=== PATIENT | female | born 1965 | race Caucasian/White ===

== ENCOUNTER 2020-08-04 15:55 | Outpatient (CLI) | payer BC, SELFPAY ==
--- NOTE | ~2020-08-04 | MM_ITS ---
EXAMINATION: MM screening scooter BI w alejandro HISTORY: Screening TECHNIQUE: Craniocaudal and mediolateral oblique 3-D tomosynthesis images were obtained and synthetic 2-D images were generated. CAD analysis was submitted and interpreted. COMPARISON: Comparison to multiple prior studies sequentially, with oldest reviewed study dated 08/29. BREAST PARENCHYMAL COMPOSITION: There are scattered areas of fibroglandular density. FINDINGS: There is a 5 mm mass in the lower inner quadrant of the right breast. The left breast is st able without evidence for malignancy. IMPRESSION: 1. New 5 mm right breast mass. 2. Additional mammographic views and possible breast ultrasound are recommended. BI-RADS Category 0: Incomplete: Needs additional imaging evaluation. Reviewed, dictated and finalized at location A. IMPRESSION: 1. New 5 mm right breast mass. 2. Additional mammographic views and possible breast ultrasound are recommended . BI-RADS Category 0: Incomplete: Needs additional imaging evaluation.
== END 2020-08-04 15:56 | disposition home or self-care (01) ==
LOC: ANHIMG 15:58
PROVIDERS: PCP Internal Medicine; Visit Provider Obstetrics & Gynecology
DX: Z12.31 Encounter for screening mammogram for malignant neoplasm of breast (principal); R92.8 Other abnormal and inconclusive findings on diagnostic imaging of breast
CPT/HCPCS: 77063; 77067

== ENCOUNTER 2020-08-20 14:03 | Outpatient (CLI) | payer BC, SELFPAY ==
--- NOTE | ~2020-08-20 | MMUS_ITS ---
EXAMINATION: MM diagnostic mammo unilat RT, US breast RT limited HISTORY: Abnormal mass in the lower inner quadrant of right breast on 08/04/2020 screening mammogram TECHNIQUE: Additional 3-D tomosynthesis images of the right breast were performed and synthetic 2-D i mages were generated. CAD analysis was submitted and interpreted. High resolution lower inner quadran t right breast ultrasound was performed. COMPARISON: 08/04/2020 bilateral digital screening mammogram FINDINGS: MAMMOGRAPHIC FINDINGS: Approximately 4.4 mm circumscribed opacity is noted at the lower inner quadrant of the right breast. ULTRASOUND: 3:00 4 cm from nipple: 3.6 x 4 mm lesion anti-parallel mildly irregular hypoechoic is noted without i nternal vascularity or posterior shadowing; ultrasound-guided aspiration attempt should be made, with biopsy if this does not resolve with aspiration. IMPRESSION: 1. Suspicious anti-parallel mildly irregular hypoechoic lesion at 3:00 position 4 cm from nipple 2. Ultrasound-guided aspiration or biopsy if necessary is recommended BI-RADS category 4, suspicious findings. Dr. Quinteros telephoned the report and ultrasound-guided aspiration/biopsy recommendation through the aft er hours office voicemail to Dr. Muriel Manzano, who returned the call on on 08/20/2020 at 1606 hours. Reviewed, dictated and finalized at location A. IMPRESSION: 1. Suspicious anti-parallel mildly irregular hypoechoic lesion at 3:00 position 4 cm from nipple 2. Ultrasound-guided aspiration or biopsy if necessary is recommended BI-RADS category 4, suspicious findings. Dr. Quinteros telephoned the report and ultrasound-guided aspiration/biopsy recommen dation through the after hours office voicemail to Dr. Muriel Manzano, who returned the call on on 08/20/2020 at 1606 hours.
== END 2020-08-20 14:04 | disposition home or self-care (01) ==
PROVIDERS: PCP Internal Medicine; Visit Provider Obstetrics & Gynecology
DX: R92.8 Other abnormal and inconclusive findings on diagnostic imaging of breast (principal)
CPT/HCPCS: 76642; 77065

== ENCOUNTER → 2020-10-08 09:30 | Outpatient (CLI) | payer BC, SELFPAY ==
--- NOTE | ~2020-10-08 | XR_ITS ---
XR cervical spine 4-5V DATE: 10/08/2020 09:48 INDICATION: Cervical radiculopathy TECHNIQUE: AP, open-mouth, lateral, swimmer's and bilateral oblique views COMPARISON: 01/02/2015 cervical spine FINDINGS: There is straightening of the cervical spine, suggesting muscle spasm. C1 and C2 are normally aligned and the odontoid process is intact. No fracture or dislocation or locked facet. No prevertebral soft tissue swelling. There is mild anterior spurring at C3-4. There is moderate degenerative disc disease and mild retrolisthesis at C4-5. There is moderate degenerative disc disease at C5-6 with prominent posterior spurring. There is moderately severe degenerative disc disease at C6-7. There is prominent uncovertebral joint spurring at C5-6 and C6-7. IMPRESSION: Straightening of the cervical spine Multi-level degenerative disc disease Reviewed, dictated and finalized at location A. OR PUBLICATIONS
== END ==
PROVIDERS: PCP Internal Medicine; Visit Provider Chiropractor
DX: M43.12 Spondylolisthesis, cervical region (principal); M54.12 Radiculopathy, cervical region
CPT/HCPCS: 72050

== ENCOUNTER 2022-01-20 15:44 | Outpatient (CLI) | payer BC, SELFPAY ==
[2022-01-20 15:58] LABS: Hematocrit 43.7 % (37.0-47.0); Hemoglobin 14.1 g/dL (12.0-15.0)
== END 2022-01-20 15:45 | disposition home or self-care (01) ==
PROVIDERS: PCP Internal Medicine; Visit Provider Obstetrics & Gynecology
DX: Z01.818 Encounter for other preprocedural examination (principal); N95.0 Postmenopausal bleeding
CPT/HCPCS: 36415; 85014; 85018

== ENCOUNTER 2022-01-27 00:54 | Day surgery (SDC) | payer BC, SELFPAY ==
[2022-01-19 09:15] VITALS: BMI 29.8
--- NOTE | 2022-01-19 09:29 | PC.NURSE ---
Report to the Outpatient Waiting Room, entrance under the green pavilion located off [facility], at time 9:30 on date 01/27/22. OR Time: 11:30. - You and your visitor will be asked a series of questions to screen for COVID 19 for your protection. - A mask is required within the hospital. One visitor will be allowed to accompany the patient into the hospital. Patients visitor will be instructed to remain with patient at all times or leave the building. We will allow the visitor to come back to the postoperative area when patient is ready. Preoperative COVID Testing Requirements: No COVID Test needed if: (proof is required; if not received patient will have Rapid Test prior to entry) - Patient has received COVID Vaccine at least 14 days prior to procedure date or - Patient has positive COVID test result within last 90 days of surgery date. COVID Test needed if above criteria is not met Patients may have clear liquids (water, carbonated beverages, clear teas, apple juice) until 3 hours prior to surgery (8:30) with a maximum of 20 ounces. - No food from midnight until time of surgery Take the following medications with a SIP of water the morning of surgery: NONE Medications to discontinue per physician: VITAMINS/SUPPLEMENTS Date to take last dose: 01/23/22 Please no make-up, nail swazi, hairspray, perfume, deodorant, or body powder the day of surgery. No jewelry (including any body piercings) or valuables the day of surgery, leave them at home. Please take a shower or bath the night before, or the morning of, surgery with an antibacterial soap. Wear comfortable, loose fitting clothing. - Jewelry must be removed prior to entering the operating room. Rings and piercings that are not removed may be cut off. - The hospital will not accept responsibility for valuables. - Please leave all valuables, including medications, at home the day of surgery. If you are going home after surgery, a licensed customer service driver must drive you home. - NO public transportation without another adult. - We recommend that an adult stay with you for 24 hours following discharge. - We also recommend that you do not drive, make important decision, drink alcoholic beverages, or take any drugs that were not prescribed by your health care provider for at least 24 hours after your discharge time. Follow any additional instructions given to you from your surgeon. Telephone instructions given to BASIA RAZO and asked if any additional questions and then verbalized understanding. Patient advised to call surgeon office or pre surgery nurse liaison [phone] if any additional questions.
--- NOTE | 2022-01-25 07:57 | PM.IMHP ---
H&P: HPI History of Present Illness Date/Time: 01/25/22 07:58 56-year-old female admitted for hysteroscopy dilatation curettage secondary to postmenopausal bleeding. Ultrasound was not helpful and I have offered her diagnostic hysteroscopy. Risks and benefits reviewed in full. She received the [employer] handouts entitled hysteroscopy as well as dilatation curettage respectively. She had all questions answered and asked to proceed Chief Complaint: Postmenopausal bleed Review of Systems Review of Systems: All systems reviewed & are unremarkable except as noted in HPI and below [facility] Social History Social History Smoking status: Never smoker Alcohol intake: current Drinks per week: 2 Substance use: never Substance use type: does not use Spiritual care concerns: No Meds Home Medications and Allergies Home Medications Medication Instructions Recorded Confirmed Type cholecalciferol (vitamin D3) 125 mcg PO DAILY 01/19/22 01/19/22 History [Vitamin D3] khkufvkl-kicwfr-ynfsbnhk acid 1 cap PO DAILY 01/19/22 01/19/22 History [Collagen 1500 Plus C] lactobacillus comb no.10 20,000 mmu cells PO DAILY 01/19/22 01/19/22 History [Probiotic] vitamin B complex 1 tablet PO DAILY 01/19/22 01/19/22 History Allergies Allergy/AdvReac Type Severity Reaction Status Date / Time No Known Allergies Allergy Unverified 01/19/22 09:13 Exam Const: General: no acute distress Eyes: General: appearance normal, both eyes and all related structures Neck: Neck: supple and no JVD Thyroid: thyroid normal Resp: Effort & Inspection: normal respiratory effort Auscultation: clear to auscultation bilaterally Cardio: Rate: regular rate Rhythm: regular rhythm GI: Inspection: non-distended GI Palp: Yes Soft to palpation, No Tenderness to palpation present (GI) and No Guarding due to palpation present (GI) Auscultation: normal bowel sounds : General: Yes bladder normal to palpation External Female Exam: normal external appearance Speculum Exam - Vagina: normal vaginal discharge and No vaginal bleeding Speculum Exam - Cervix: nontender Bimanual exam- vagina & uterus: bladder normal to palpation and No Cervical tenderness present OB/external & speculum: No vaginal bleeding Skin: General skin exam: no rashes or lesions noted Extrem: General: normal to inspection and no edema Psych: Mental Status: mental status grossly normal Affect: normal affect Assessment and Plan Additional Plan Impression: Postmenopausal bleeding Plan: Hysteroscopy/dilatation and curettage
--- NOTE | 2022-01-27 07:09 | WPDHPUPDATE1 ---
History and Physical Update Update Date/Time: 01/27/22 07:09 History and Physical has been reviewed, including an updated exam of the patient. There are NO changes in the patient's condition. Risks, benefits, and alternatives have been discussed and questions answered. Patient agrees to proceed with procedure.
[2022-01-27] MEDS: ACETAMINOPHEN 500 MG TABLET 1000 MG PO (09:34)
[2022-01-27 09:40] VITALS: BP 124/62; PULSE 61; RESP 16; TEMP 36.2; O2SAT 100
[2022-01-27] MEDS: LACTATED RINGERS 1,000 ML 30 ML IV CONT (09:56)
--- NOTE | 2022-01-27 10:52 | P.PNAN_ITS ---
Anes - Initial Pre Proc Eval Procedure: Operation Date: 01/27/22 11:30 Proposed Procedures p Hysteroscopy Dilation and Curettage - Delfin Manzano MD Date/Time: 01/27/22 10:52 Surgeon: Delfin Manzano MD Pre Op Diagnosis: post menopausal bleeding Patient Data Age: 56 Gender: F Height: 1.68 m Weight: 85.3 kg Last Vital Signs Temp 36.2 C L 01/27/22 09:40 Pulse 61 01/27/22 09:40 Resp 16 01/27/22 09:40 BP 124/62 01/27/22 09:40 Pulse Ox 100 01/27/22 09:40 Allergies Allergy/AdvReac Type Severity Reaction Status Date / Time No Known Allergies Allergy Unverified 01/19/22 09:13 Home Medications Medication Instructions Recorded Confirmed Type cholecalciferol (vitamin D3) 125 mcg PO DAILY 01/19/22 01/19/22 History [Vitamin D3] moychtxf-utiwsg-xifoedvw acid 1 cap PO DAILY 01/19/22 01/19/22 History [Collagen 1500 Plus C] lactobacillus comb no.10 20,000 mmu cells PO DAILY 01/19/22 01/19/22 History [Probiotic] vitamin B complex 1 tablet PO DAILY 01/19/22 01/19/22 History hydrocodone-acetaminophen 1 tablet PO Q4H PRN #20 tablet 01/27/22 Rx Patient hx anesthesia problems: none Family hx anesthesia problems: none Results Review: All pre-operative results and documents have been reviewed as part of the pre-operative evaluation. [facility] Past Medical History Medical History (Updated 01/27/22 @ 07:10 by Delfin Manzano MD) Anxiety Depression Social History Social History Smoking status: Never smoker Alcohol intake: current Drinks per week: 2 Substance use: never Substance use type: does not use Living arrangements: with family Spiritual care concerns: No Anes - Eval Final PreProcedure Day of Procedure 01/27/22 10:52 Patient weight: obese Heart: regular rate and rhythm Lungs: clear to auscultation and normal air movement Airway: Mallampati scale class II Neurological: alert and oriented Last oral intake: >/= 8 hours ASA classification: II Emergent: no Anesthetic plan: proceed Anesthesia type and monitoring: general GIVS and standard monitoring Results Review: All pre-operative results and documents have been reviewed as part of the pre-operative evaluation. Informed Consent: The patient's anesthetic plan and its attendant risks and benefits were discussed with the patient/family/POA. Questions were solicited and answers provided to the satisfaction of the patient/family/POA.
--- NOTE | 2022-01-27 11:48 | P.OP_ITS ---
Procedure Note - Detailed Date of Procedure 01/27/22 Pre-op Diagnosis post menopausal bleeding Post-op Diagnosis Other (With uterine polyp) Procedure Performed Hysteroscopy/polypectomy/dilatation curettage Surgeon Delfin Manzano MD Anesthesia MAC and Local Indications This 56-year-old female with postmenopausal bleeding Findings Small benign-appearing polyp Description of Procedure Patient was prepped draped in normal sterile fashion placed in dorsal lithotomy position. Under excellent monitored anesthesia care weighted speculum placed in posterior fornix vagina. Anterior lip of cervix grasped with single-tooth tenaculum 2.5cc 1% xylocaine anesthesia placed at 2, 4, 8, 10:00 a.m. of the cervix. Uterus sounded to 9cm. Serial dilatation with fragmented dilators performed followed by passage of the 5mm visualizing hysteroscope. Normal saline was used as visualizing medium. A small uterine polyp was seen this was removed with the uterine polyp forceps in pieces. The uterus and scraped over t he entire 360? until the grating sound was heard. When no further tissue removed instruments removed. All sponge, needle, instrument counts were correct. There were no immediate complications Estimated Blood Loss 5 Drains No Packing No Pathology Yes Complications No immediate complications Condition Stable Disposition PACU
[2022-01-27 11:53] VITALS: BP 105/54; PULSE 61; RESP 14; O2SAT 100
[2022-01-27 12:15] VITALS: BP 102/52; PULSE 62; RESP 14; O2SAT 100
[2022-01-27 12:35] VITALS: BP 133/67; PULSE 50; RESP 14
== END 2022-01-27 12:43 | disposition home or self-care (01) ==
PROVIDERS: PCP Internal Medicine; Visit Provider Obstetrics & Gynecology
PROC: 0U5B8ZZ Destruction of Endometrium, Via Natural or Artificial Opening Endoscopic (ICD-10-PCS; CPT 58563; principal; 2022-01-27 11:30)
DX: N95.0 Postmenopausal bleeding (principal); N84.0 Polyp of corpus uteri; F41.8 Other specified anxiety disorders; E66.9 Obesity, unspecified; Z68.30 Body mass index [BMI] 30.0-30.9, adult
CPT/HCPCS: 58558; 36415; 85014; 85018; 88305; A9270; J1100; J2250; J2405; J2704; J3010; J7030; J7120